=== PATIENT | female | born 1960 | race African-American/Black ===

== ENCOUNTER 2017-04-30 16:15 | Emergency (ER) | payer OTHER, SELFPAY ==
[2017-04-30] MEDS ORDERED: Cyclobenzaprine 10 MG TAB ONE (17:31)
[2017-04-30] MEDS ORDERED: Ketorolac Tromethamine 30 MG/ML VIAL ONE (17:31)
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
== END 2017-04-30 17:48 | disposition home or self-care (01) ==
LOC: ERS 16:15
DX: S16.1XXA Strain of muscle, fascia and tendon at neck level, initial encounter (principal); M54.6 Pain in thoracic spine; V73.6XXA Passenger on bus injured in collision with car, pick-up truck or van in traffic accident, initial encounter
CPT/HCPCS: 72040; 96372; J1885

== ENCOUNTER 2017-07-17 15:14 | Emergency (ER) | payer OTHER, SELFPAY ==
[~2017-07-17 15:14] MED LIST: ISOVUE-370 76%-LOCM 1 ML ONE
[2017-07-17 15:58] LABS: #Eosinphils 0.3 thou/uL (0.0-0.7); #Lymphocytes 2.9 thou/uL (1.20-3.40); #Monocytes 0.7 thou/uL (0.11-0.59); #Neutrophils 3.7 thou/uL (1.40-6.50); %Basophils 0.2 % (0.0-1.0); %Eosinophils 3.4 % (0.0-10.0); %Lymphocytes 38.3 % (21.0-51.0); %Monocytes 9.1 % (0.0-10.0); %Neutrophils 48.9 % (42.0-75.0); Mean Corpuscular HGB CONC 33.7 g/dL (32.0-36.0); Mean Corpuscular Hemoglobin 29.4 pg (27.0-31.0); Mean Corpuscular Volume 87.4 fl (81.0-99.0); Mean Platelet Volume 7.7 fL (7.4-10.4); Platelet Count 271 thou/uL (130-400); RBC Distribution Width 12.4 % (11.5-14.5); Red Blood Cell (RBC) Count 4.07 mill/uL (4.20-5.40); White Blood Cell (WBC) Count 7.5 thou/uL (4.8-10.8)
--- NOTE | 2017-07-17 16:15 | RAD ---
AP VIEW OF THE CHEST 07/17/17 INDICATION: Shortness of breath and cough. FINDINGS: Prior exam dated 08/30/08. FINDINGS: No consolidation, pleural effusion or pneumothorax evident. The cardiomediastinal silhouette is withi n normal limits. IMPRESSION: No acute abnormality. POS: [facility]
[2017-07-17 16:18] LABS: ALT (SGPT) 18 U/L (8-55); AST (SGOT) 19 U/L (5-34); Albumin 3.9 g/dL (3.5-5.0); Alkaline Phosphatase 133 U/L (40-150); Anion Gap 9 mmol/L (10-20); BUN (Urea Nitrogen) 11 mg/dL (9.8-20.1); Bilirubin, Total 0.3 mg/dL (0.2-1.2); CK (CPK) 158 U/L (29-168); Calc. Creatinine Clearance 0 mL/min (70-130); Calcium 9.3 mg/dL (7.8-10.44); Carbon Dioxide 26 mmol/L (22-29); Chloride 109 mmol/L (98-107); Estimated GFR-MDRD 85; Globulin 3.1 g/dL (2.4-3.5); Glucose 122 mg/dL (70-105); Potassium 3.4 mmol/L (3.5-5.1); Sodium 141 mmol/L (136-145)
[2017-07-17 16:22] LABS: CKMB 1.8 ng/mL (0-6.6); Troponin I Less than 0.010 ng/mL (< 0.028)
--- NOTE | 2017-07-17 17:18 | CT ---
CT PULMONARY ANGIOGRAM WITH IV CONTRAST AND 3D POSTPROCESSIN07/17/17 HISTORY: Dyspnea. FINDINGS: Cough, chest pain with deep breathing. FINDINGS: No filling defects are seen in the contrast opacified pulmonary arterial vasculature to suggest pulmo nary embolism. The thoracic aorta is well opacified without aneurysmal dissection. No pleural or leticia cardial effusions are seen. No pneumothoraces, lobar consolidation, or lung bases are identified. The re are mild dependent changes in the lung bases. A small hiatal hernia is present. IMPRESSION: No CT evidence of pulmonary embolism. POS: [facility]
== END 2017-07-17 17:00 | disposition home or self-care (01) ==
LOC: ERS 15:14
DX: J40 Bronchitis, not specified as acute or chronic (principal); G43.909 Migraine, unspecified, not intractable, without status migrainosus; J44.9 Chronic obstructive pulmonary disease, unspecified; Z86.711 Personal history of pulmonary embolism; Z86.718 Personal history of other venous thrombosis and embolism
CPT/HCPCS: 71045; 71275; 80053; 82553; 84484; 85025; 85379; 93005; 94760

== ENCOUNTER 2017-10-17 11:09 | Emergency (ER) | payer SELFPAY ==
[2017-10-17 12:04] LABS: Bilirubin Negative (Negative); Blood, Urine Negative (Negative); Clarity CLEAR (Clear); Glucose, Urine (Dipstick) Negative (Negative); Leukocyte Negative (Negative); Nitrite Negative (Negative); Protein, Urine (Dipstick) Negative (Neg-Trace); Specific Gravity, Urine 1.021 (1.002-1.036); pH, Urine 5.5 (5.0-9.0)
== END 2017-10-17 12:53 | disposition home or self-care (01) ==
LOC: ERS 11:09
DX: M54.41 Lumbago with sciatica, right side (principal); G43.909 Migraine, unspecified, not intractable, without status migrainosus
CPT/HCPCS: 81003; 99283

== ENCOUNTER 2018-03-06 12:11 | Emergency (ER) | payer SELFPAY ==
[2018-03-06] MEDS ORDERED: predniSONE 20 MG TAB ONE (13:04)
[2018-03-06] MEDS ORDERED: Benzonatate 100 MG CAP PO SCH (13:15)
--- NOTE | 2018-03-06 13:26 | RAD ---
CHEST 2 VIEWS: Date: 03/06/18 HISTORY: Cough. COMPARISON: Radiograph dated 07/17/17. FINDINGS: Lungs are clear. No pneumothorax or effusion. Mild reverse S-shaped scoliosis. No acute osseous abnormality. IMPRESSION: No acute intrathoracic abnormality. POS: [facility]
== END 2018-03-06 13:45 | disposition home or self-care (01) ==
LOC: ERS 12:11
DX: J20.9 Acute bronchitis, unspecified (principal); J04.0 Acute laryngitis; G43.909 Migraine, unspecified, not intractable, without status migrainosus
CPT/HCPCS: 71046; J7506

== ENCOUNTER 2018-10-17 13:51 | Emergency (ER) | payer SELFPAY | END 2018-10-17 15:25 | disposition home or self-care (01) | LOC: ERS 13:51 | DX: M79.602 Pain in left arm (principal); G43.909 Migraine, unspecified, not intractable, without status migrainosus | CPT/HCPCS: 99281 ==

== ENCOUNTER 2019-10-08 20:54 | Emergency (ER) | payer OTHER, SELFPAY ==
[2019-10-08] MEDS ORDERED: Ketorolac Tromethamine 30 MG/ML VIAL ONE (21:13)
[2019-10-08] MEDS ORDERED: Acetaminophen 500 MG TAB ONE (21:13)
[2019-10-08 21:26] LABS: #Lymphocytes 1.9 thou/uL (1.20-3.40); #Monocytes 0.5 thou/uL (0.11-0.59); #Neutrophils 3.8 thou/uL (1.40-6.50); %Eosinophils 0.1 % (0.0-10.0); %Lymphocytes 30.2 % (21.0-51.0); %Monocytes 8.5 % (0.0-10.0); %Neutrophils 61.2 % (42.0-75.0); Hemoglobin 12.3 g/dL (12.0-16.0); Mean Corpuscular HGB CONC 32.6 g/dL (32.0-36.0); Mean Corpuscular Hemoglobin 28.6 pg (27.0-31.0); Mean Corpuscular Volume 87.7 fL (78.0-98.0); Platelet Count 245 thou/uL (130-400); RBC Distribution Width 12.7 % (11.5-14.5); Red Blood Cell (RBC) Count 4.31 mill/uL (4.20-5.40); White Blood Cell (WBC) Count 6.2 thou/uL (4.8-10.8)
--- NOTE | 2019-10-08 21:38 | RAD ---
XR Chest 1 View Portable HISTORY: Cough, fever COMPARISON: 03/06/2018 FINDINGS: The heart size is normal. The lungs are well expanded without lobar consolidation, pneumoth orax or pleural effusions. There is a small patchy area of opacity in the right lower lung and the left lung base.. IMPRESSION: Probable bibasilar pneumonia
[2019-10-08 21:48] LABS: ALT (SGPT) 89 U/L (8-55); AST (SGOT) 91 U/L (5-34); Albumin 3.7 g/dL (3.4-4.8); Alkaline Phosphatase 124 U/L (40-110); Anion Gap 11 mmol/L (10-20); BUN (Urea Nitrogen) 8 mg/dL (9.8-20.1); Bilirubin, Total 0.7 mg/dL (0.2-1.2); CK (CPK) 131 U/L (29-168); Calc. Creatinine Clearance 0 mL/min (70-130); Calcium 8.3 mg/dL (7.8-10.44); Carbon Dioxide 24 mmol/L (23-31); Chloride 103 mmol/L (98-107); Estimated GFR-MDRD 73; Globulin 3.3 g/dL (2.4-3.5); Glucose 116 mg/dL (80-115); Lipase 18 U/L (8-78); Magnesium 2.1 mg/dL (1.6-2.6); Potassium 3.7 mmol/L (3.5-5.1); Sodium 134 mmol/L (136-145)
== END 2019-10-08 23:30 | disposition home or self-care (01) ==
LOC: ERS 20:54
DX: J18.9 Pneumonia, unspecified organism (principal); Z20.828 Contact with and (suspected) exposure to other viral communicable diseases; G43.909 Migraine, unspecified, not intractable, without status migrainosus
CPT/HCPCS: 36415; 71045; 80053; 82550; 83605; 83690; 83735; 84484; 85025; 87040; 87086; 96361; 96372; 96374; J1885

== ENCOUNTER 2021-02-28 09:54 | Emergency (ER) | payer SELFPAY | END 2021-02-28 10:27 | disposition home or self-care (01) | LOC: ERS 09:54 | DX: J06.9 Acute upper respiratory infection, unspecified (principal); G43.909 Migraine, unspecified, not intractable, without status migrainosus | CPT/HCPCS: 99283 ==

== ENCOUNTER 2022-05-11 11:19 | Emergency (ER) | payer SELFPAY ==
[2022-05-11] MEDS ORDERED: Ibuprofen 200 MG TAB ONE (12:09)
[2022-05-11] MEDS ORDERED: Oxymetazoline HCl 0.05% (30 ML BOT) ONE (12:10)
[2022-05-11] MEDS ORDERED: Albuterol 200 PUFF (6.7GM INHALER) ONE (12:33)
== END 2022-05-11 13:03 | disposition home or self-care (01) ==
LOC: ERS 11:19
DX: B34.9 Viral infection, unspecified (principal)
CPT/HCPCS: 71045

== ENCOUNTER 2022-08-23 11:06 | Emergency (ER) | payer SELFPAY ==
[2022-08-23 11:35] LABS: #Monocytes 0.5 thou/uL (0.11-0.59); #Neutrophils 2.7 thou/uL (1.40-6.50); %Basophils 0.4 % (0.0-1.0); %Eosinophils 0.7 % (0.0-10.0); %Lymphocytes 39.8 % (21.0-51.0); %Monocytes 9.6 % (0.0-10.0); %Neutrophils 49.3 % (42.0-75.0); Hemoglobin 11.7 g/dL (12.0-16.0); Mean Corpuscular HGB CONC 32.4 g/dL (32.0-36.0); Mean Corpuscular Hemoglobin 28.3 pg (27.0-31.0); Mean Corpuscular Volume 87.4 fl (78.0-98.0); Platelet Count 298 10x3/uL (130-400); RBC Distribution Width 14.6 % (11.5-14.5); Red Blood Cell (RBC) Count 4.13 mill/uL (4.20-5.40); White Blood Cell (WBC) Count 5.4 10x3/uL (4.8-10.8)
[2022-08-23 11:57] LABS: ALT (SGPT) 15 U/L (8-55); AST (SGOT) 14 U/L (5-34); Albumin 3.8 g/dL (3.4-4.8); Alkaline Phosphatase 109 U/L (40-110); Anion Gap 9 mmol/L (10-20); BUN (Urea Nitrogen) 8 mg/dL (9.8-20.1); Bilirubin, Total 0.2 mg/dL (0.2-1.2); Calc. Creatinine Clearance 0 mL/min (70-130); Calcium 9.1 mg/dL (7.8-10.44); Carbon Dioxide 26 mmol/L (23-31); Chloride 107 mmol/L (98-107); Estimated GFR 75; Globulin 2.7 g/dL (2.4-3.5); Glucose 152 mg/dL (80-115); Potassium 3.4 mmol/L (3.5-5.1); Protein, Total 6.5 g/dL (5.8-8.1); Sodium 139 mmol/L (136-145)
[2022-08-23] MEDS ORDERED: Iopamidol-370 76% 500 ML MDV (1 ML CHARGE) ONE (12:32)
[2022-08-23] MEDS ORDERED: Aspirin Chewable 81 MG TAB ONE (12:57)
== END 2022-08-23 13:34 | disposition home or self-care (01) ==
LOC: ERS 11:06
DX: R07.9 Chest pain, unspecified (principal); Z88.1 Allergy status to other antibiotic agents
CPT/HCPCS: 36415; 71045; 71275; 80053; 84484; 85025; 93005; 94760; Q9967

== ENCOUNTER 2022-12-27 18:15 | Emergency (ER) | payer SELFPAY ==
[2022-12-27] MEDS ORDERED: Famotidine 20 MG TAB ONE (19:20)
[2022-12-27] MEDS ORDERED: Loratadine 10 MG TAB ONE (19:26)
== END 2022-12-27 19:28 | disposition home or self-care (01) ==
LOC: ERS 18:15
DX: L50.9 Urticaria, unspecified (principal)
CPT/HCPCS: 99282

== ENCOUNTER 2023-02-15 11:45 | Emergency (ER) | payer OTHER, SELFPAY ==
[2023-02-15] MEDS ORDERED: Acetaminophen 500 MG TAB ONE (13:25)
[2023-02-15 13:28] LABS: SARS-CoV-2 NAA Rapid Test Not Detected (NotDetected)
[2023-02-15 13:49] LABS: #Eosinphils 0.1 thou/uL (0.0-0.7); #Monocytes 1.3 thou/uL (0.11-0.59); #Neutrophils 3.7 thou/uL (1.40-6.50); %Basophils 0.6 % (0.0-1.0); %Eosinophils 2.2 % (0.0-10.0); %Lymphocytes 19.8 % (21.0-51.0); %Monocytes 19.8 % (0.0-10.0); %Neutrophils 57.4 % (42.0-75.0); Hemoglobin 12.7 g/dL (12.0-16.0); Mean Corpuscular HGB CONC 33.4 g/dL (32.0-36.0); Mean Corpuscular Hemoglobin 28.3 pg (27.0-31.0); Mean Corpuscular Volume 84.8 fl (78.0-98.0); Mean Platelet Volume 10.2 fL (7.4-10.4); Platelet Count 237 10x3/uL (130-400); RBC Distribution Width 14.4 % (11.5-14.5); Red Blood Cell (RBC) Count 4.48 mill/uL (4.20-5.40); White Blood Cell (WBC) Count 6.4 10x3/uL (4.8-10.8)
[2023-02-15 14:14] LABS: ALT (SGPT) 22 U/L (8-55); AST (SGOT) 31 U/L (5-34); Albumin 3.9 g/dL (3.4-4.8); Alkaline Phosphatase 106 U/L (40-110); Anion Gap 13 mmol/L (10-20); BUN (Urea Nitrogen) 12 mg/dL (9.8-20.1); Bilirubin, Total 0.4 mg/dL (0.2-1.2); Calc. Creatinine Clearance 0 mL/min (70-130); Calcium 8.9 mg/dL (7.8-10.44); Carbon Dioxide 25 mmol/L (23-31); Chloride 103 mmol/L (98-107); Estimated GFR 68; Globulin 3.5 g/dL (2.4-3.5); Glucose 109 mg/dL (80-115); Potassium 3.7 mmol/L (3.5-5.1); Protein, Total 7.4 g/dL (5.8-8.1); Sodium 137 mmol/L (136-145)
== END 2023-02-15 14:43 | disposition home or self-care (01) ==
LOC: ERS 11:45
DX: J10.1 Influenza due to other identified influenza virus with other respiratory manifestations (principal)
CPT/HCPCS: 0240U; 71045; 80053; 85025; 96360